=== PATIENT | female | born 1950 | race Caucasian/White ===

== ENCOUNTER 2019-04-22 15:37 | Inpatient (IN) | payer MEDICARE, MEDICAID ==
[~2019-04-22] VITALS: Ht 157.5 cm; Wt 75.3 kg
--- NOTE | ~2019-04-22 | PROC ---
[facility] [address] [place] [address] PROCEDURE REPORT Name: ERLIN GARRISON Room: [address] IN ..#: [id number] Admission: 04/22/19 Attend Phys: Chester Marcelo, Discharge: 04/28/19 Date of : 50 Report #: [id number] THIS REPORT FOR: //name// cc: Juan Vera DO Juan Vera DO ~ THIS REPORT FOR: //name// For GI report, please see the Provation report in Perceptive 7 content. By: [id number] Records Staff ADY /KASIE
[~2019-04-22 15:37] MED LIST: ALBUTEROL INHAL17 GM IH; ALBUTEROL2.5 MG/0.5 INH; ALBUTEROL2.5 MG/32 IH; AMOX TR-K400 MG/5 M PO; AUGMENTIN 875875 MG PO; IBUPROFEN 400400 M1 GT; MIRALAX17 GM PO; MIRALAX255 GM PO; NICODERM CQ1 EAC1 TD; NORCO 5-325 TA1 EACH PO; PREDNISONE10 MG PO; PREDNISONE50 MG PO; PRILOSEC 20 MG20 MG PO; SIMETHICON CHEW80 M1 PO; SINGULAIR 10 MG10 MG PO; ZOCOR40 MG PO; ZPAK PO
[2019-04-22 15:59] VITALS: BP 137/64
[2019-04-22] MEDS ORDERED: TRAMADOL 50 MG50 MG PO (16:04)
[2019-04-22 16:20] LABS: ABSOLUTE BASOPHILS 0.1 thou/uL (0.0-0.2); ABSOLUTE LYMPHOCYTES 1.8 thou/uL (0.8-5.3); ABSOLUTE MONOCYTES 0.5 thou/uL (0.0-1.2); BASOPHILS 0.8 %; EOSINOPHILS 0.5 %; HEMATOCRIT 38.6 % (37.0-47.0); HEMOGLOBIN 13.2 gm/dL (12.0-15.0); LYMPHOCYTES 21.3 %; MCH 29.9 pg (26.0-34.0); MCHC 34.2 g/dL (28.0-37.0); MCV 87.3 fL (80.0-100.0); MONOCYTES 6.3 %; MPV 8.1 fl. (7.2-11.1); NUCLEATED RBCS 0 /100WBC; PLATELET COUNT* 271 thou/uL (150-400); POLYS 71.1 %; RBC 4.42 mil/uL (4.20-5.00); RDW-CV 13.1 % (10.5-14.5); WBC 8.4 thou/uL (4.0-11.0)
[2019-04-22 16:36] LABS: CALCIUM 9.1 mg/dL (8.5-10.1); CREATININE 0.7 mg/dL (0.6-1.3); POTASSIUM 3.4 mmol/L (3.5-5.1)
[2019-04-22 16:41] LABS: ALBUMIN 3.7 g/dL (3.4-5.0); TOTAL BILIRUBIN 0.5 mg/dL (<0.1-1.0); TOTAL PROTEIN 7.7 g/dL (6.4-8.2)
[2019-04-22 21:08] VITALS: BP 131/49
[2019-04-22 22:00] VITALS: BP 115/59
[2019-04-23 03:45] VITALS: BP 137/63
[2019-04-23 07:30] VITALS: BP 133/61
--- NOTE | 2019-04-23 08:32 | NUR ---
ASSUMED CARE OF PT THIS AM AROUND 714- FRONT DESK AGENT IN PLACE ORDERED, TRACING SR- UPON ASSESSMENT PT NOTED TO BE UP RESTING ON SIDE OF BED, SON AT SIDE- PT A&O X4- CONT OF BOWEL AND BLADDER- UP AD-NIVIA, STEADY GAIT NOTED- DIMINISHDE LUNG SOUNDS NOTED, RESP EVEN AND UN-LABORED- VSS, O2 SAT 100% ON RA- ABD DISTENDED/SOFT, BS HYPOACTIVE- PT REPORTS TO BE PASSING GAS- NO BM FOR 11 DAYS REPORTED- PRN MIRALAX GIVEN THIS AM- PT REPORTS PAIN DISCOMFORT TO ABD AND GAS TO BE PAINFULL- ORDERED OBTAINED AND GIVEN FOR SIMETHICONE THIS AM- PRN FENT GIVEN PER PT REQUEST AT 07- IV NOTED TO LEFT AC INTACT, IVF AND IV ABT GIVEN PRESCRIBED-PT CURRENTLY NPO FOR GI CONSULT- CALL LIGHT AND PERSONAL BELONGINGS WITH IN REACH- PT MAKES NEEDS KNOWN- ALL NEEDS MET AT THIS TIME-WCTM
--- NOTE | 2019-04-23 08:38 | NUR ---
PT RECIEVED FROM ED IN ROOM 225. ALERT AND ORIENTED X4. C/O PAIN, MEDICATION GIVEN PER EMAR. REFUSED TO TAKE STOOL SOFTNER. CALL LIGHT WITHIN REACH AND BED IN LOW POSITION. HOURLY ROUNDING DONE FOR PT SAFETY.
[2019-04-23 11:59] VITALS: BP 170/71
--- NOTE | 2019-04-23 15:28 | NUR ---
CM COMPLETED INITIAL ASSESSMENT TO DISCUSS D/C PLANNING. PT A&oX4. PT LIVES W/HER DTR AND IS HER DTR'S C/G. PT IS INDEPENDENT W/HER OWN CARE. PT DRIVES AND SHE DENIES HX W/HH OR SNF. PT HAS 0 DMES. CM TO REMAIN AVAIL.
--- NOTE | 2019-04-23 16:28 | EKG ---
[place] [address] ELECTROCARDIOGRAM REPORT Name: ERLIN GARRISON Room: [address] ADM IN .R.#: [id number] Admission: 04/22/19 Attend Phys: Chester Urbina Discharge: Date of : 50 Date of Service: 04/22/191813 Report #: [id number] THIS REPORT FOR: //name// [facility] ED Test Date: 2019-04-22 Test Time: 18:14:33 Pat Name: ERLIN GARRISON Department: Room: 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 : 1950 Requested By: Cherry Loving Order Number: [id number] MD: Hawk Willis Measurements Intervals [place] Rate: 67 P: 80 OK: 33 QRS: 32 QRSD: 92 T: 45 QT: 455 QTc: 481 Interpretive Statements Sinus rhythm Short OK interval Borderline prolonged QT interval Compared to ECG 02/07/2014 12:52:11 Short OK interval now present Sinus tachycardia no longer present Electronically Signed On 04-23-2019 16:27:24 CDT by Hawk Willis [email or web address] <ELECTRONICALLY SIGNED> By: Hawk Willis MD, [facility] 04/23/19 1627 1814 181 Hawk Willis MD, [facility] /EPI
--- NOTE | 2019-04-23 17:28 | CON ---
[address] [address] CONSULTATION Name: BLADIMIRERLIN L Room: [address] IN ..#: [id number] Admission: 04/22/19 Attend Phys: Chester Marcelo, Discharge: Date of : 50 Report #: [id number] THIS REPORT FOR: //name// cc: Juan Vera Brad DO ~ THIS REPORT FOR: //name// CC: Juan Espitia DICTATED BY: Anisa DOHERTYP DATE OF SERVICE: 04/23/2019 PRIMARY CARE PHYSICIAN: Juan Vera DO Please note at the time of this dictation, the patient was seen and physically examined by myself. REASON FOR CONSULTATION: Abdominal pain and no bowel movement in greater than 10 days. HISTORY OF PRESENT ILLNESS: This is a 68-year-old female, who states that she has not had a bowel movement in greater than 10 days. She is also having associated nausea as well as gas pains as well. The patient states that she does have issues with constipation and diarrhea, normally she does not usually take anything, she has been going to the bathroom on a daily basis prior to this, starting 10 days ago, but she states when she does go to the bathroom, they are hard round pellets. Over the last several days, the day before admission, she had taken some Dulcolax tablets and some MiraLax and had not had a bowel movement. The patient was last seen by us. She had an EGD back in 2009. She states she had a colonoscopy, but there is no record here or in our office and she states all of her procedures have been done here, so it appears that she has never had a colonoscopy done. She is having some nausea at this time, but no vomiting. She denies any fever or chills at this time. ALLERGIES: CIPRO AND SUCCINYLCHOLINE. MEDICATIONS FROM HOME: Tramadol and she has been taking MiraLax and Singulair. PAST MEDICAL HISTORY: History of hiatal hernia, migraines and some COPD. PAST SURGICAL HISTORY: Partial hysterectomy. She has had an umbilical hernia repair [place] [address] CONSULTATION Name: ERLIN GARRISON Room: [address]#: [id number] Admission: 04/22/19 Attend Phys: Chester Marcelo, Discharge: Date of : 50 Report #: [id number] FAMILY HISTORY: Maternal aunt, breast cancer. SOCIAL HISTORY: Denies any alcohol use or illegal drug use, but does smoke. REVIEW OF SYSTEMS: Twelve-point review of systems is essentially negative except what is mentioned in the HPI. PHYSICAL EXAMINATION: VITAL SIGNS: Temperature 36.6, pulse 64, respirations 18, blood pressure 133/61. HEART: Regular rate and rhythm. LUNGS: Clear, slightly diminished. ABDOMEN: Soft, slightly distended and firm, with some faint bowel sounds noted. LABORATORY DATA: Hemoglobin 13.2, white count 8.4, platelets 271. Potassium is 3.4. LFTs are normal. GFR is 83. CT shows post-cholecystectomy, pancolonic abnormal wall thickening throughout the entire colon with some indeterminate hypodense lesions noted in the adrenal glands. IMPRESSION: 1. Abdominal pain. 2. Constipation greater than 10 days. 3. Nausea. 4. Family history of maternal aunt with breast cancer. PLAN: 1. Clear liquids. 2. Continue her metronidazole antibiotic. 3. Dulcolax tablets 20 mg now and repeat at 1400 hours as well as Dulcolax suppository 20 mg now. 4. If the patient does not have a bowel movement by 1600 hours, to give her soapsuds enema at that time. 5. Further recommendations to be made once we assess the above response. She will need a colonoscopy, but timing of that will be determined on results of above. Thank you for allowing us to participate in this patient's care. Please do not hesitate to call with any questions in regard to this consult. <ELECTRONICALLY SIGNED> By: Jordan Christian MD 04/23/19 1728 0940 [id number] Christian MD /nt
[2019-04-23 18:00] VITALS: BP 139/60
[2019-04-23 20:00] VITALS: BP 146/66
[2019-04-23 23:29] VITALS: BP 146/73
[2019-04-24 04:25] VITALS: BP 153/57
[2019-04-24 06:40] LABS: URINE BLOOD 2+ (Negative); URINE CLARITY CLEAR; URINE COLOR YELLOW; URINE GLUCOSE-RANDOM NEGATIVE (Negative); URINE KETONES NEGATIVE (Negative); URINE LEUKOCYTES-REFLEX 1+ (Negative); URINE NITRITE-REFLEX NEGATIVE (Negative); URINE PROTEIN NEGATIVE (Negative); URINE SPECIFIC GRAVITY 1.015 (1.005-1.030); URINE UROBILINOGEN 0.2 E.U./dl (0.2-1.0)
[2019-04-24 06:42] LABS: ICTOTEST (BILI CONFIRMATORY) Positive (Negative); URINE BILIRUBIN 2+ (Negative)
[2019-04-24 06:48] LABS: SQUAMOUS 0-3 Few /LPF (0-3); URINE RBC 3-10 Few /HPF (0-2)
[2019-04-24 06:49] LABS: BACTERIA-REFLEX 1-9 Few /HPF (None Seen); CASTS None Seen /LPF (None Seen); CRYSTALS None Seen /LPF (None Seen); MUCUS 0-3 Light strn/LPF (None Seen); URINE WBC-REFLEX 6-15 Few /HPF (0-5)
--- NOTE | 2019-04-24 07:51 | NUR ---
ASSUMED CARE OF PT AFTER REPORT AT 1930. PT A&OX4. VSS. PHYSICAL ASSESSMENT COMPLETED AND CHARTED. PT ON RA. PT TRACING SA/SR/PAC ON TELE. PT UP ADLIB TO RESTROOM. PT COMPLAINED OF ABDOMINAL PAIN-MED GIVEN PER MAR. MAINTAINED ON CLEAR LIQUIDS. FAMILY AT BS. CALL LIGHT WITHIN REACH.
[2019-04-24 07:58] VITALS: BP 144/56
[2019-04-24 08:35] LABS: HEMATOCRIT 38.2 % (37.0-47.0); HEMOGLOBIN 12.9 gm/dL (12.0-15.0); MCH 29.6 pg (26.0-34.0); MCHC 33.9 g/dL (28.0-37.0); MCV 87.4 fL (80.0-100.0); MPV 7.9 fl. (7.2-11.1); RBC 4.37 mil/uL (4.20-5.00); WBC 7.7 thou/uL (4.0-11.0)
[2019-04-24 09:04] LABS: ALBUMIN 3.2 g/dL (3.4-5.0); CALCIUM 8.3 mg/dL (8.5-10.1); CREATININE 0.7 mg/dL (0.6-1.3); MAGNESIUM 1.7 mg/dL (1.8-2.4); POTASSIUM 3.2 mmol/L (3.5-5.1); TOTAL BILIRUBIN 0.5 mg/dL (<0.1-1.0); TOTAL PROTEIN 6.7 g/dL (6.4-8.2)
--- NOTE | 2019-04-24 09:33 | NUR ---
ASSUMED CARE OF PT THIS AM AROUND 0715- LABORATORY SUPERVISOR IN PLACE ORDERED, TRACING SR/PAC- UPON ASSESSMENT PT NOTED TO BE RESTING ON SIDE OF BED, SON AT SIDE- PT A&O X4- CONT OF BOWEL AND BLADDER- UP AD-NIVIA IN ROOM, STEADY GAIT NOTED-DIMINISHED LUNG SOUNDS NOTED, RESP EVEN AND UN-LABORED- VSS, O2 SAT 98% ON RA- ABD SOFT/DISTENDED, BS X4 QUADS- PT HAVING BM'S THIS SHIFT R/T LAXITIVE ADMINISTRATIONS PRESCRIBED- IV NOTED TO LEFT AC INTACT, IVF INFUSSING PRESCRIBED- IV ABT PRESCRIBED THIS SHIFT- CLEAR LIQUID DIET IN PLACE WITH FAIR PO INTAKE NOTED- PRN FENT AND SIMETHICONE THIS AM AT 0844 R/T ABD PAIN- 1+ BLE EDEMA NOTED- CALL LIGHT AND PERSONAL BELONGINGS WITH IN REACH- PT MAKE NEEDS KNOWN- ALL NEEDS MET AT THIS TIME-WCTM
[2019-04-24 11:44] VITALS: BP 143/59
[2019-04-24 17:20] VITALS: BP 152/69
[2019-04-24 20:00] VITALS: BP 150/57
[2019-04-25] VITALS: BP 150/49
[2019-04-25 04:00] VITALS: BP 133/59
--- NOTE | 2019-04-25 07:00 | NUR ---
ASSUMED CARE OF PT AFTER REPORT AT 1930. PT A&OX4. VSS. PHYSICAL ASSESSMENT COMPLETED AND CHARTED. PT ON RA. PT TRACING SR/SB ON TELE. PT UPADLIB TO RESTROOM. PT COMPLAINED OF ABDOMINAL PAIN-MEDICATION GIVEN PER APR. FAMILY AT BEDSIDE. STOOL SPECIMEN SENT TO LAB. CALL LIGHT WITHIN REACH.
[2019-04-25 08:00] VITALS: BP 150/63
[2019-04-25 11:50] LABS: MAGNESIUM 1.9 mg/dL (1.8-2.4); POTASSIUM 3.2 mmol/L (3.5-5.1)
[2019-04-25 12:07] VITALS: BP 140/63
[2019-04-25 16:15] VITALS: BP 153/71
[2019-04-25 20:00] VITALS: BP 150/66
[2019-04-26 00:26] VITALS: BP 150/69
[2019-04-26 04:07] LABS: ABSOLUTE BASOPHILS 0.1 thou/uL (0.0-0.2); ABSOLUTE EOSINOPHILS 0.1 thou/uL (0.0-0.7); ABSOLUTE LYMPHOCYTES 2.5 thou/uL (0.8-5.3); ABSOLUTE MONOCYTES 0.8 thou/uL (0.0-1.2); ABSOLUTE NEUTROPHILS 5.7 thou/uL (1.6-8.1); BASOPHILS 0.8 %; EOSINOPHILS 0.7 %; HEMATOCRIT 35.8 % (37.0-47.0); LYMPHOCYTES 27.8 %; MCH 29.3 pg (26.0-34.0); MCHC 33.5 g/dL (28.0-37.0); MCV 87.5 fL (80.0-100.0); MONOCYTES 8.3 %; MPV 7.7 fl. (7.2-11.1); NUCLEATED RBCS 0 /100WBC; PLATELET COUNT* 229 thou/uL (150-400); POLYS 62.4 %; RBC 4.09 mil/uL (4.20-5.00); WBC 9.1 thou/uL (4.0-11.0)
[2019-04-26 04:24] VITALS: BP 151/49
[2019-04-26 04:29] LABS: ALBUMIN 3.2 g/dL (3.4-5.0); CALCIUM 8.2 mg/dL (8.5-10.1); CREATININE 0.6 mg/dL (0.6-1.3); POTASSIUM 3.5 mmol/L (3.5-5.1); TOTAL BILIRUBIN 0.5 mg/dL (<0.1-1.0); TOTAL PROTEIN 6.4 g/dL (6.4-8.2)
--- NOTE | 2019-04-26 06:14 | NUR ---
ASSUMED CARE OF PT AFTER REPORT AT 1930. PT A&OX4. VSS. PHYSICAL ASSESSMENT COMPLETED AND CHARTED. PT ON RA. PT TRACING SR ON TELE. PT UP ADLIB TO BSC. PT COMPLAINED OF ABDOMINAL PAIN-MED GIVEN PER APR. STOOL SPECIMEN SENT TO LAB. CALL LIGHT WITHIN REACH.
[2019-04-26 08:00] VITALS: BP 156/75
[2019-04-26 12:49] VITALS: BP 126/78
[2019-04-26 16:00] VITALS: BP 130/79
--- NOTE | 2019-04-26 18:52 | NUR ---
PATINET RESTING IN BED. UP AD NIVIA IN ROOM. ROOM AIR. BATHROOM PRIVLEGES. HOURLY ROUDNING COMPPELTED FOR PATINET SAFETY. PRESUMED EGD AND COLONOSCOPY TOMORROW. NPO AFTER MIDNIGHT.
[2019-04-26 20:00] VITALS: BP 134/67
[2019-04-27 00:34] VITALS: BP 149/49
[2019-04-27 04:40] VITALS: BP 150/55
[2019-04-27 04:57] LABS: ABSOLUTE BASOPHILS 0.1 thou/uL (0.0-0.2); ABSOLUTE EOSINOPHILS 0.1 thou/uL (0.0-0.7); ABSOLUTE LYMPHOCYTES 1.9 thou/uL (0.8-5.3); ABSOLUTE MONOCYTES 0.8 thou/uL (0.0-1.2); ABSOLUTE NEUTROPHILS 6.8 thou/uL (1.6-8.1); BASOPHILS 0.6 %; EOSINOPHILS 0.9 %; HEMATOCRIT 34.8 % (37.0-47.0); LYMPHOCYTES 19.5 %; MCH 29.8 pg (26.0-34.0); MCHC 34.4 g/dL (28.0-37.0); MCV 86.7 fL (80.0-100.0); MONOCYTES 8.1 %; MPV 7.8 fl. (7.2-11.1); NUCLEATED RBCS 0 /100WBC; PLATELET COUNT* 243 thou/uL (150-400); POLYS 70.9 %; RBC 4.01 mil/uL (4.20-5.00); RDW-CV 13.1 % (10.5-14.5); WBC 9.5 thou/uL (4.0-11.0)
--- NOTE | 2019-04-27 05:13 | NUR ---
ASSUMED CARE OF PT AFTER REPORT AT 1930. PT A&OX4. VSS. PHYSICAL ASSESSMENT COMPLETED AND CHARTED. PT ON RA. PT TRACING SR/ST ON TELE. PT UPADLIB TO BSC. PT COMPLAINED OF ABDOMINAL PAIN-MED GIVEN PER MAR. INSTRUCTED ON NPO POST MIDNIGHT FOR EGD/COLONOSCOPY TODAY. COMMUNICATES UNDERSTANDING. FAMILY AT BS. CALL LIGHT WITHIN REACH.
[2019-04-27 05:23] LABS: CALCIUM 8.2 mg/dL (8.5-10.1); CREATININE 0.6 mg/dL (0.6-1.3); POTASSIUM 3.1 mmol/L (3.5-5.1)
[2019-04-27 07:37] VITALS: BP 149/71
[2019-04-27 13:12] VITALS: BP 112/55
[2019-04-27 16:47] VITALS: BP 168/67
--- NOTE | 2019-04-27 18:44 | NUR ---
PATIENT RESTING IN BED. UP AD NIVIA IN ROOM. EGD/COLON WA TODAY. DIET RESUMED. EXPECTED DISCHARGE TO HOME TOMMORROW. VSS. PATIENT REPORTS ABD MARCIO HAS DECREASED. GOOD APPETITE AND CONSUMED ALL OF HER DINNER WITH NO COMPAINTS. HOURLY ROUNDING COMPLETED FOR PATIENT SAFETY
[2019-04-27 19:15] VITALS: BP 157/65
[2019-04-28 01:07] VITALS: BP 142/59
--- NOTE | 2019-04-28 02:52 | NUR ---
ASSUMED CARE OF PT AT 1900. PT IS ALERT AND ORIENTED. VSS. PERRLA. NO COMPLAINTS OF PAIN. STEADY GAIT. PT IS IN SINUS RYTHM ON THE TELEMETRY. PT IS RESTING COMFORTABLY IN BED. RESPIRATIONS ARE EVEN AND NONLABORED. WILL CONTINUE TO MONITOR PT.
[2019-04-28 04:32] VITALS: BP 141/64
[2019-04-28 07:30] VITALS: BP 146/75
[2019-04-28 12:00] VITALS: BP 151/59
[2019-04-28 15:37] VITALS: BP 151/59
[2019-04-28] MEDS ORDERED: PROTONIX40 M2 PO (15:42)
== END 2019-04-28 16:19 | disposition home or self-care (01) | DRG 394 ==
LOC: M.ERS 15:37 → M.2W 17:53 → M.TBA-ER 17:53 → M.2W 21:49
PROVIDERS: Internal Medicine; Internal Medicine Gastroenterology; Nurse Practitioner Family; ADMIT Family Medicine
PROC: 0DBL8ZZ Excision of Transverse Colon, Via Natural or Artificial Opening Endoscopic (ICD-10-PCS; principal; 2019-04-27)
PROC: 0DB68ZX Excision of Stomach, Via Natural or Artificial Opening Endoscopic, Diagnostic (ICD-10-PCS; principal; 2019-04-27)
PROC: 0DBP8ZZ Excision of Rectum, Via Natural or Artificial Opening Endoscopic (ICD-10-PCS; principal; 2019-04-27)
DX: K55.039 Acute (reversible) ischemia of large intestine, extent unspecified (principal); K56.7 Ileus, unspecified; D35.02 Benign neoplasm of left adrenal gland; D35.01 Benign neoplasm of right adrenal gland; D12.8 Benign neoplasm of rectum; D12.3 Benign neoplasm of transverse colon; E78.5 Hyperlipidemia, unspecified; E66.01 Morbid (severe) obesity due to excess calories; K21.9 Gastro-esophageal reflux disease without esophagitis; K44.9 Diaphragmatic hernia without obstruction or gangrene; E78.00 Pure hypercholesterolemia, unspecified; G43.909 Migraine, unspecified, not intractable, without status migrainosus; E03.9 Hypothyroidism, unspecified; K31.89 Other diseases of stomach and duodenum; K26.9 Duodenal ulcer, unspecified as acute or chronic, without hemorrhage or perforation; Z90.711 Acquired absence of uterus with remaining cervical stump; Z68.30 Body mass index [BMI] 30.0-30.9, adult; Z79.899 Other long term (current) drug therapy; Z88.8 Allergy status to other drugs, medicaments and biological substances; Z90.49 Acquired absence of other specified parts of digestive tract; Z87.891 Personal history of nicotine dependence; Z88.1 Allergy status to other antibiotic agents

== ENCOUNTER 2019-06-19 10:26 | Emergency (ER) | payer MEDICARE, MEDICAID ==
[~2019-06-19] VITALS: Ht 157.5 cm; Wt 71.3 kg
[~2019-06-19 10:26] MED LIST changes: +AUGMENTIN 875-1 EACH PO; +DIFLUCAN150 M1 PO; +FLAGYL500 M1 PO; +NORCO 5-325 TA1 EAC1 PO; +ONDANSETRON HCL4 M2 PO; +PROTONIX40 M2 PO; +TRAMADOL 50 MG50 MG PO; +TYLENOL EXTRA500 MG PO; +VAGISIL CREAM28 G1 TOP
[2019-06-19 11:07] LABS: ABSOLUTE BASOPHILS 0.1 thou/uL (0.0-0.2); ABSOLUTE LYMPHOCYTES 1.7 thou/uL (0.8-5.3); ABSOLUTE MONOCYTES 0.7 thou/uL (0.0-1.2); ABSOLUTE NEUTROPHILS 6.9 thou/uL (1.6-8.1); BASOPHILS 0.7 %; EOSINOPHILS 0.5 %; HEMATOCRIT 38.4 % (37.0-47.0); LYMPHOCYTES 18.5 %; MCHC 33.8 g/dL (28.0-37.0); MCV 85.8 fL (80.0-100.0); MONOCYTES 7.1 %; MPV 7.9 fl. (7.2-11.1); NUCLEATED RBCS 0 /100WBC; PLATELET COUNT* 251 thou/uL (150-400); POLYS 73.2 %; RBC 4.47 mil/uL (4.20-5.00); RDW-CV 12.9 % (10.5-14.5); WBC 9.4 thou/uL (4.0-11.0)
[2019-06-19 11:16] LABS: CALCIUM 9.7 mg/dL (8.5-10.1); CREATININE 0.8 mg/dL (0.6-1.3); POTASSIUM 3.9 mmol/L (3.5-5.1)
[2019-06-19 11:21] LABS: ALBUMIN 3.4 g/dL (3.4-5.0); TOTAL BILIRUBIN 0.6 mg/dL (<0.1-1.0); TOTAL PROTEIN 7.2 g/dL (6.4-8.2)
[2019-06-19 12:34] LABS: URINE BILIRUBIN NEGATIVE (Negative); URINE BLOOD NEGATIVE (Negative); URINE CLARITY CLEAR; URINE COLOR YELLOW; URINE GLUCOSE-RANDOM NEGATIVE (Negative); URINE KETONES NEGATIVE (Negative); URINE LEUKOCYTES-REFLEX NEGATIVE (Negative); URINE NITRITE-REFLEX NEGATIVE (Negative); URINE PROTEIN NEGATIVE (Negative); URINE UROBILINOGEN 0.2 E.U./dl (0.2-1.0)
[2019-06-19] MEDS ORDERED: ZOFRAN ODT4 MG DISSOLVE (13:12)
[2019-06-19 13:31] VITALS: BP 161/64
--- NOTE | 2019-06-19 14:35 | EKG ---
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
== END 2019-06-19 13:33 | disposition home or self-care (01) ==
LOC: M.ERS 10:26
PROVIDERS: Emergency Medicine Emergency Medical Services
DX: R11.2 Nausea with vomiting, unspecified (principal); R10.84 Generalized abdominal pain; G43.909 Migraine, unspecified, not intractable, without status migrainosus; J44.9 Chronic obstructive pulmonary disease, unspecified; E78.00 Pure hypercholesterolemia, unspecified; Z88.1 Allergy status to other antibiotic agents; Z88.8 Allergy status to other drugs, medicaments and biological substances; Z90.711 Acquired absence of uterus with remaining cervical stump

== ENCOUNTER 2020-04-07 17:23 | Emergency (ER) | payer MEDICARE, MEDICAID ==
[~2020-04-07] VITALS: Ht 157.5 cm; Wt 72.6 kg
--- NOTE | ~2020-04-07 | EMS ---
[facility] [address] [place] [address] EMS Patient Care Report Name: ERLIN GARRISON [id number] Admission: 04/07/20 Attend Phys: Discharge: Date of : 50 Report #: [id number] THIS REPORT FOR: //name// Report Transmitted: 04/07/2020 19:53 EMS Care Summary [employer] [facility] Incident [phone] @ 04/07/2020 16:42 Incident Location [address] [place] [address] [place] [address] Patient ERLIN GARRISON Female, 69 Years 1950 Patient Address [address] [place] [address] [place] [address] Patient History Gastro-Esophageal Reflux Disease (GERD),Gallbladder Disease, Patient Allergies No known allergies, Patient Medications Unknown, Chief Complaint constipation Disposition Transported No Lights/[place] Dispatch Reason Sick Person Transported To [facility] Narrative Dispatched to a residence for 69y/o female with constipation. Upon arrival pt. stated that she had not had a bowel movement in 1 week and had tried a lot of OTC remedies. Pt. stated that she called the nurse line and was told to call an ambulance to transport her to a hospital. Pt. stated that she was in no [address] [place] [address] EMS Patient Care Report Name: ERLIN GARRISON Room: [facility]#: [id number] Admission: 04/07/20 Attend Phys: Discharge: Date of : 50 Report #: [id number] discomfort at the moment. Pt. was transported to [facility] for emergency services. Initial Vitals @17:11P: 96,R: 18,BP: 141/103,SpO2: 97, @17:19P: 100,R: 18,BP: 149/107,GCS: 15,SpO2: 97,Revised Trauma: 12, @16:59P: 100,R: 18,BP: 138/105,Pain: 0/10,GCS: 15,Temp: 97.9F,Glucose: 111,SpO2: 98,Revised Trauma: 12, Assessments @16:58MENTAL:No Abnormalities,SKIN:No Abnormalities,HEENT:Head/Face: No Abnormalities,Eyes: No Abnormalities,Neck/Airway: No Abnormalities,LUNG SOUNDS:General: No Abnormalities,Left Upper: No Abnormalities,Right Upper: No Abnormalities,Left Lower: No Abnormalities,Right Lower: No Abnormalities,ABDOMEN:General: No Abnormalities,Left Upper: No Abnormalities,Right Upper: No Abnormalities,Left Lower: No Abnormalities,Right Lower: No Abnormalities,PELVIS//GI:Pelvis GUOther,EXTREMITIES:Left Arm: No Abnormalities,Right Arm: No Abnormalities,Left Leg: No Abnormalities,Right Leg: No Abnormalities,PULSE:NEURO:No Abnormalities, Impression Constipation Procedures @17:15Saline Lock 10cc (20 ga) Site: Hand-RightResponse: UnchangedSucceeded Timeline 16:40,Call Received 16:42,Dispatched 16:46,En Route 16:55,Initial Responder On Scene 16:55,On Scene 16:57,At Patient 16:59,Depart Scene 16:59,BP: 138/105 M,PULSE: 100,RR: 18 R,SPO2: 98 Ox,ETCO2: ,B,PAIN: 0,GCS: 15, 17:11,BP: 141/103 M,PULSE: 96,RR: 18 R,SPO2: 97 Ox,ETCO2: ,BG: ,PAIN: ,GCS: , 17:15,Saline Lock 10cc 20 ga Site: Hand-Right,Response: UnchangedSucceeded, 17:19,BP: 149/107 M,PULSE: 100,RR: 18 R,SPO2: 97 Ox,ETCO2: ,BG: ,PAIN: ,GCS: 15, 17:21,At Destination 17:24,Transfer Patient 17:54,Call Closed 17:54,[place] [address] EMS Patient Care Report Name: ERLIN GARRISON RAYSA Room: [facility]#: [id number] Admission: 04/07/20 Attend Phys: Discharge: Date of : 50 Report #: [id number] v1.1 Copyright 2020 [employer] This EMS Care Summary contains data elements from the applicable legal record (which may be displayed differently). It is designed to provide pertinent information for the following purposes: continuity of care, clinical quality, and state data reporting. The complete legal record is available to ED staff and administrators of the receiving hospital in [facility]'s Patient Tracker. All data is provided "as is."
[~2020-04-07 17:23] MED LIST changes: +MEDROLDOSEPACK PO; +OMEPRAZOLE40 MG PO; +XANAX 0.25 MG0.25 MG PO; +ZOFRAN ODT4 MG DISSOLVE
[2020-04-07 18:23] LABS: CALCIUM 9.7 mg/dL (8.5-10.1); CREATININE 0.8 mg/dL (0.6-1.3); POTASSIUM 3.5 mmol/L (3.5-5.1)
[2020-04-07 18:28] LABS: ALBUMIN 3.7 g/dL (3.4-5.0); TOTAL BILIRUBIN 0.9 mg/dL (<0.1-1.0); TOTAL PROTEIN 7.4 g/dL (6.4-8.2)
[2020-04-07 18:48] LABS: ABSOLUTE BASOPHILS 0.1 thou/uL (0.0-0.2); ABSOLUTE EOSINOPHILS 0.1 thou/uL (0.0-0.7); ABSOLUTE LYMPHOCYTES 2.5 thou/uL (0.8-5.3); ABSOLUTE MONOCYTES 0.7 thou/uL (0.0-1.2); ABSOLUTE NEUTROPHILS 7.6 thou/uL (1.6-8.1); BASOPHILS 0.6 %; EOSINOPHILS 0.7 %; HEMATOCRIT 38.7 % (37.0-47.0); HEMOGLOBIN 12.7 gm/dL (12.0-15.0); LYMPHOCYTES 22.7 %; MCH 27.6 pg (26.0-34.0); MCV 83.7 fL (80.0-100.0); MONOCYTES 6.6 %; MPV 7.7 fl. (7.2-11.1); NUCLEATED RBCS 0 /100WBC; PLATELET COUNT* 247 thou/uL (150-400); POLYS 69.4 %; RBC 4.62 mil/uL (4.20-5.00); RDW-CV 14.1 % (10.5-14.5)
[2020-04-07 19:36] LABS: URINE BILIRUBIN NEGATIVE (Negative); URINE BLOOD NEGATIVE (Negative); URINE CLARITY CLEAR; URINE COLOR YELLOW; URINE GLUCOSE-RANDOM NEGATIVE (Negative); URINE KETONES NEGATIVE (Negative); URINE LEUKOCYTES-REFLEX NEGATIVE (Negative); URINE NITRITE-REFLEX NEGATIVE (Negative); URINE PROTEIN NEGATIVE (Negative); URINE SPECIFIC GRAVITY 1.015 (1.005-1.030); URINE UROBILINOGEN 0.2 E.U./dl (0.2-1.0)
[2020-04-07 21:30] VITALS: BP 130/60
[2020-04-07] MEDS ORDERED: COLACE100 MG PO (21:40)
[2020-04-07] MEDS ORDERED: MIRALAX119 GM PO (21:40)
== END 2020-04-07 21:35 | disposition home or self-care (01) ==
LOC: M.ERS 17:23
PROVIDERS: Nurse Practitioner Family
DX: R10.84 Generalized abdominal pain (principal); Z87.19 Personal history of other diseases of the digestive system; G43.909 Migraine, unspecified, not intractable, without status migrainosus; J44.9 Chronic obstructive pulmonary disease, unspecified; E78.00 Pure hypercholesterolemia, unspecified; Z88.1 Allergy status to other antibiotic agents; Z88.8 Allergy status to other drugs, medicaments and biological substances